=== PATIENT | female | born 1990 | race Caucasian/White ===

== ENCOUNTER 2018-03-25 01:00 | Day surgery (SDC) | payer OTHER ==
[2018-03-25] VITALS (7 sets, daily range): BP systolic 105–120; BP diastolic 65–88
[~2018-03-25] VITALS: Ht 162.6 cm; Wt 64.9 kg
[~2018-03-25 01:00] MED LIST: COLL1POW; DOCO1CAP17 PO; ETHI1TAB22 PO; MULT-1335 PO; PROP10TA58 PO
[2018-03-25] MEDS ORDERED: LIDOCAINE MPF 1% 5 ML VIAL ONE (07:36)
[2018-03-25] MEDS ORDERED: fentaNYL CITR 100 MCG/2 ML AMP ONE (07:36)
[2018-03-25] MEDS ORDERED: PROPOFOL EMUL(*) 10MG/ML 20 ML 20 ML ONE (07:36)
[2018-03-25] MEDS ORDERED: DEXAMETHASONE SOD 4 MG/ML VIAL ONE (07:36)
[2018-03-25] MEDS ORDERED: ONDANSETRON 4 MG/2 ML VIAL ONE (07:36)
[2018-03-25] MEDS ORDERED: KETAMINE HCL 200 MG/20 ML MDV ONE (07:38)
[2018-03-25] MEDS ORDERED: FAMOTIDINE 20 MG TAB PO ONE (09:00)
[2018-03-25] MEDS ORDERED: LIDOCAINE/SOD BICARB 8.4% SYR ID ONE (09:00)
[2018-03-25] MEDS ORDERED: MIDAZOLAM 2 MG/2 ML VIAL IVP PRN (09:00)
[2018-03-25] MEDS ORDERED: NORMOSOL R SOLN(*) 1000 ML BAG 1,000 ML IV PRN (09:00)
[2018-03-25] MEDS ORDERED: ROPIVACAINE 0.5% 20 ML VIAL ONE (09:23)
[2018-03-25] MEDS ORDERED: OXYC-854 PO (10:27)
[2018-03-25] MEDS ORDERED: DOCU-416 PO (10:27)
--- NOTE | 2018-03-25 10:29 | Short(Outpt) Discharge Summary ---
Discharge Summary Reason for Hosp/Final Diag: (1) Breast mass in female Status: Chronic Hospital Course & Plan: Left breast lumpectomy completed without problems. Departure Discharge to: Home, Self Care Discharge Instructions Home Meds Active Scripts Docusate Sodium (COLACE) 100 Mg Capsule, 1 CAP PO BID, #30 CAP 0 Refills TAKE WITH A FULL GLASS OF WATER Prov:MICHEL HOPKINS MD 03/25/18 Oxycodone Hcl/Acet 5/325 Mg (ENDOCET 5-325 TABLET) 1 Each Tablet, 1 TAB PO Q4H Y for PAIN, #20 TAB 0 Refills Prov:MICHEL HOPKINS MD 03/25/18 Reported Medications Collagen, Hydrolysate (Bovine) (Collagen Hydrolysate) 100 % Powder 03/19/18 Docosahexanoic Acid/Epa (FISH OIL CONCENTRATE SOFTGEL) 1 Each Capsule, 1 EACH PO , CAPSULE 03/19/18 Multivitamin With Minerals (MULTIPLE VITAMIN) 1 Each Tablet, 1 EACH PO, TAB 03/19/18 Ethinyl Estradiol/Drospirenone (LORYNA 3 MG-0.02 MG TABLET) 1 Each Tablet, 1 EACH PO QDAY 03/19/18 Propranolol Hcl (PROPRANOLOL HCL) Unknown Strength Tablet, PO PRN 08/19/17 Follow up Referrals: General Surgery - 04/12/18 @ Surgery, General with Michel Hopkins Md You have a follow up appointment scheduled with Dr. Hopkins on 04/12/18, at 11:30am. Diet: Regular Activity: As Tolerated Special Instructions: You may remove the white surgical dressing on 03/27/18, then you can shower. After showering, leave the incision open to air but leave the steristrips in place until they fall off on their own. Do not immerse the incision for 2 weeks. MICHEL HOPKINS MD Mar 25, 2018 10:29
--- NOTE | 2018-03-25 10:33 | Post Operative Progress Note ---
Post Operative Progress Note Date: Mar 25, 2018 Time: 10:29 Surgeon: Papo Dictation number: [id number] Anesthesia: LMA by Dr. Crawley Pre-Op Diagnosis: Left breast lump Post-Op Diagnosis: EMILIANO Findings: C/W dx Procedure(s): Left breast lumpectomy Specimen Removed:(May be N/A): left breast lump Complications: None Fluids: See anesthesia record Estimated Blood Loss: Minimal Date OP Note Dictated: Mar 25, 2018 Time OP Note Dictated: 10:30 MICHEL HOPKINS MD Mar 25, 2018 10:33
--- NOTE | 2018-03-25 14:30 | OPERATIVE REPORT 1 ---
EVENT DATE: March 25, 2018 SURGEON: Pradip Barros MD ANESTHESIOLOGIST: Sudhir Kirkpatrick MD ANESTHESIA: LMA. PREOPERATIVE DIAGNOSIS Left breast lump. POSTOPERATIVE DIAGNOSIS Left breast lump. PROCEDURE PERFORMED Excision of left breast lump. COMPLICATIONS None. CONDITION Stable. BLOOD LOSS Minimal. INDICATIONS This is a 27-year-old female who presented to my office with a left breast lump. It was slowly getting larger, and she was really concerned about it and requested to have it removed. DESCRIPTION OF PROCEDURE The patient was brought to the operating room and placed supine on the operating table. LMA anesthesia was administered, and the left breast was prepped and draped in a sterile fashion. I palpated the lump, made a skin zaki over this, and then anesthetized the skin with 0.5% ropivacaine plain. I made a transverse incision in her left breast overlying the lump parallel with the skin lines and dissected through the dermis and subcutaneous fat. I dissected down the lump, dissected completely around the lump, removed it from the wound, and passed it off the field. The wound was made hemostatic with electrocautery and irrigated and dried. The subcutaneous pocket was closed with running 3-0 Vicryl sutures, and the skin was closed with 4-0 Monocryl running subcuticular suture. Skin was cleaned and dried, and Steri-Strips were applied, followed by a sterile surgical dressing. The patient was awakened and LMA removed. She was transported to the recovery room in stable condition having tolerated the procedure without any apparent problems. TAMARA
== END 2018-03-25 11:10 | disposition home or self-care (01) ==
LOC: OR 01:00
PROVIDERS: ATTEND Surgery
DX: N63.24 Unspecified lump in the left breast, lower inner quadrant (principal)
CPT/HCPCS: 19120; 81025; 88305; 88344; J1100; J2001; J2250; J2405; J2704; J2795; J3010; J3490